=== PATIENT | female | born 1990 ===

== ENCOUNTER 2018-05-06 09:17 | Emergency (ER) | payer OTHER ==
[~2018-05-06] VITALS: Ht 152.4 cm; Wt 68.0 kg
[2018-05-06] MEDS ORDERED: Omeprazole20 M1 (10:08)
== END 2018-05-06 10:31 | disposition home or self-care (01) ==
LOC: ER 09:17
DX: Z32.01 Encounter for pregnancy test, result positive (principal); Z79.899 Other long term (current) drug therapy
CPT/HCPCS: 81000; 81025; 99282